=== PATIENT | female | born 1950 | race Caucasian/White ===

== ENCOUNTER 2023-08-22 21:19 | Emergency (ER) | payer MEDICARE, BC ==
[2023-08-22] MEDS: Albuterol/Ipratropium 3.0-0.5 MG/3 ML Neb Soln NEB ONE (21:54)
[2023-08-22] MEDS: Dexamethasone 4 MG/ML SDV PO ONE (21:54)
[2023-08-22] MEDS: Albuterol 6.7 GM Inhaler INH ONE (22:30)
[2023-08-22] MEDS: Doxycycline Monohydrate 100 MG Cap PO ONE (22:30)
== END 2023-08-22 22:51 | disposition home or self-care (01) ==
LOC: DL.ED 21:19
DX: J40 Bronchitis, not specified as acute or chronic (principal)
CPT/HCPCS: 71045; 94640; 99283; 99285; A9270; J8540; J7620-GY